=== PATIENT | male | born 1990 | race Caucasian/White ===

== ENCOUNTER 2022-04-11 09:17 | Emergency (ER) | payer BC ==
[2022-04-11] MEDS ORDERED: Sodium Chloride 0.9% 1,000 ML IV ONE (10:22)
[2022-04-11] MEDS ORDERED: Ketorolac 30 MG/ML SDV IVPUSH ONE (10:22)
[2022-04-11] MEDS ORDERED: Ondansetron 4 MG/2 ML SDV IVPUSH ONE (10:22)
[2022-04-11] MEDS ORDERED: Sodium Chloride 0.9% 10 ML Syringe FLUSH PRN (10:22)
[2022-04-11 12:00] LABS: ESTIMATED GFR > 60 mL/min (>60)
== END 2022-04-11 12:45 | disposition home or self-care (01) ==
LOC: JD.ED 09:17
DX: R10.9 Unspecified abdominal pain (principal)
CPT/HCPCS: 36415; 74176; 80053; 81001; 83735; 85025; 86140; 96374; 96375; 99284; J1885; J2405; J3490; J7030